=== PATIENT | male | born 1980 | race Caucasian/White ===

== ENCOUNTER 2024-09-07 06:48 | Emergency (ER) | payer SELFPAY ==
--- NOTE | ~2024-09-07 | XR_ITS ---
EXAMINATION: XR chest 2V DATE: 09/07/2024 07:55 INDICATION: Headache and dizziness TECHNIQUE: PA and lateral views of the chest were obtained. COMPARISON: None FINDINGS: Mild elevation the left hemidiaphragm. Lungs are clear with no focal airspace opacities, pulmonary ed tammy, pleural effusion or pneumothorax. The cardiomediastinal silhouette is normal. Mild anterior wedg ing of a few mid thoracic vertebral bodies. IMPRESSION: 1. Mild elevation of left hemidiaphragm. No other acute pulmonary disease. Reviewed, dictated and finalized at location A. ODONTIST VICE PRESIDENT
[2024-09-07 06:50] VITALS: BP 108/67; PULSE 86; RESP 17; TEMP 36.2; O2SAT 100
--- NOTE | 2024-09-07 06:57 | ECG_ITS ---
Test Date: 2024-09-07 07:05:15 Measurements Intervals Moon Rate: 85 P: 54 NH: 143 QRS: 28 QRSD: 106 T: 25 QT: 359 QTc: 429 Interpretive Statements SINUS RHYTHM No previous ECG available for comparison Electronically Signed On 09-12-2024 10:13:32 FORMS DESIGNER by Connor Echeverria M.D.
[2024-09-07 07:24] LABS: Basophils Percent Auto 0.1 % (0.2-1.2); Eosinophils Absolute Auto 0.1 K/mm3 (0-0.3); Eosinophils Percent Auto 0.7 % (0-4.4); Hematocrit 42.9 % (42.0-52.0); Hemoglobin 14.4 g/dL (14.0-18.0); Immature Granulocyte Absolute 0.03 K/mm3 (0.00-0.031); Immature Granulocyte Percent A 0.3 % (0-0.5); Lymphocytes Absolute Auto 2.58 K/mm3 (0.9-3.2); Lymphocytes Percent Auto 24.1 % (18.3-44.2); Mean Corpuscular HGB Conc 33.6 g/dl (32-36); Mean Corpuscular Hemoglobin 30.5 pg (26-34); Mean Corpuscular Volume 90.9 fl (80-100); Mean Platelet Volume 10.6 fl (7.4-10.4); Monocytes Absolute Auto 0.9 K/mm3 (0.1-0.6); Monocytes Percent Auto 8.3 % (2.6-8.5); Neutrophils Absolute Auto 7.1 K/mm3 (1.3-6.7); Neutrophils Percent Auto 66.5 % (45.5-73.1); Platelet Count Result 249 k/mm3 (150-375); Red Blood Count 4.72 M/mm3 (4.6-6.20); Red Cell Distribution Width 13.2 % (11.5-14.5); White Blood Count 10.7 K/mm3 (4.5-10.0)
[2024-09-07 07:34] LABS: Alanine Aminotransferase 20 U/L (6-50); Albumin Level 4.2 g/dL (3.5-5.1); Alkaline Phosphatase 74 U/L (38-126); Anion Gap 8 mmol/L (4-12); Aspartate Amino Transferase 25 U/L (17-59); Bilirubin,Total 0.6 mg/dL (0.2-1.3); Blood Urea Nitrogen 11 mg/dL (9-20); Calcium 8.9 mg/dL (8.4-10.2); Carbon Dioxide 26 mmol/L (22-30); Chloride 104 mmol/L (98-107); Estimated CRCL calculation 148 ml/min; Estimated Glomerular Filt Rate > 60; Glucose 117 mg/dL (65-110); Lipase 68 U/L (23-300); Potassium 3.4 mmol/L (3.4-5.0); Sodium 138 mmol/L (137-145)
[2024-09-07 07:38] LABS: INR 1.1; Partial Thromboplastin Time 24.2 Seconds (22.3-36.8); Prothrombin Time 14.6 Seconds (11.1-14.7)
[2024-09-07 07:46] LABS: Troponin I < 0.012 ng/mL (0.000-0.034)
[2024-09-07 08:52] VITALS: BP 132/106; PULSE 88; RESP 20; O2SAT 100
[2024-09-07 10:21] VITALS: BP 123/73; PULSE 99; RESP 16; TEMP 36.6; O2SAT 100
--- NOTE | 2024-09-07 10:24 | PC.NURSE ---
Patient brought into triage to repeat vitals. patient complaining of increasing pain. patient's vital signs obtained and all WNL.
--- NOTE | 2024-09-07 10:27 | PC.NURSE ---
Patient states he is going to go to the hospital where he had his surgery performed due to wait time at out facilty
--- OUTSIDE RECORDS SUMMARY | 2024-09-14 05:16 | XMS_ITS | Continuity of Care Document ---
Author Organization [facility] Address [address] [place] [address] Care Team Providers Care Opener Tender Name Role Phone Aaron Sheridan MD Unavailable Unavailable Allergies, Adverse Reactions, Alerts Substance Reaction Status Criticality No Known allergies Procedures Procedure Date OFFICE/OUTPATIENT VISIT, EST OFFICE/OUTPATIENT VISIT, EST OFFICE/OUTPATIENT VISIT, EST OFFICE/OUTPATIENT VISIT, EST URINALYSIS NONAUTO W/O SCOPE OFFICE/OUTPATIENT VISIT, EST MEASURE BLOOD OXYGEN LEVEL VISUAL ACUITY SCREEN URINALYSIS NONAUTO W/O SCOPE OFFICE/OUTPATIENT VISIT, [facility] [place] Advance Directives Directive Yes / No Effective Date File Name No Information Encounters Encounter Description Practice Location Reason(s) For Visit Diagnoses Date Provider Providers Copied on Encounter OFFICE/OUTPA TIENT VISIT, [facility], [address], [place], [id number] , [facility] needs referral to see ediscovery project manager (chief complaint) PVCs 3 Arvin Aaron. [address] [place] [address], [address], . tel:[phone] OFFICE/OUTPA TIENT VISIT, [facility], [address], [place], [id number] , [facility] referral for cardiology (chief complaint)ref erral for ent (chief complaint) Chronic sinusitisNasal polypEnvironmen win allergiesPVCs 3 No Information OFFICE/OUTPA TIENT VISIT, [facility], [address], [place], [place], [id number] , [facility] sinus pressure (chief complaint)rosanne al obstruction (chief complaint) Allergic rhinitisNasal obstruction 3 No Information OFFICE/OUTPA TIENT VISIT, [facility], [address], [place], [place], [id number] , [facility] [place] referral request (chief complaint) Encounter for vasectomyPVCs 2 No Information OFFICE/OUTPA TIENT VISIT, [facility], [address], [place], [place], [id number] , [facility] [place] UC left testicular pain (chief complaint) PVCs (premature ventricular contractions)BM I 30.0-30.9,adult Unspecified disorder of male genital organs 2 [facility]. [address], [place], [address], . tel:[phone] OFFICE/OUTPA TIENT VISIT, [facility], [address], [place], [place], [id number] , [facility] [place] physical exam (chief complaint)Pt recently had EKG done for Job Phx (abnormal) (chief complaint)Pt request Cardio clearance (chief complaint) PVCs (premature ventricular contractions)Ro utine general medical examination at a health care facilityPVCs (premature ventricular contractions)Ot her premature beats 1 No Information Family History Family Member Type Diagnosis Age At Onset Father Problem (finding) hypertension Payers Payer name Insurance type Covered democrat ID Authorlisaa timichael(s) [facility] [id number] Social History Type Description Quantity Date Captured Comments Alcohol Use Details beer 2 beers monthly Caffeine Use Details coffee Tobacco Use Status No Information Smoking Status Former smoker Sex Male Vital Signs Date / Time: Height Weight BMI Pulse Rate Blood Pressure Temperature Respiratory Rate Body Surface Area Head Circumference Head Circ. Percentile Wt./Damir. Percentile BMI percentile Pulse Ox Inhaled Ox 3:52 PM 72.00 in 234.00 lbs 31.7 3 kg/m eter (2) 75 /min 118/85 mm[Hg] 97.30 F 16 /min 96 % 3:54 PM 123/72 mm[Hg] Chief Complaint And Reason For Visit From encounter dated '02/01/2013 15:40'. needs referral to see ediscovery project manager (chief complaint) Reason For Referral Reason For Referral No Information Plan Of Treatment Date Type Action Status Referral Ordered: Allergy/Immun (related to Environmental allergies) ordered Referral Ordered: Cardiology (related to PVCs (premature ventricular contractions)) ordered Referral Ordered: Referral: Cardiology. Consult. ordered Referral Ordered: Referral: Allergy/Immun. ordered Referral Ordered: CT MAXILLOFACIAL W/O & W/DYE Bilateral sinuses ordered Referral Ordered: Otolaryngology (related to Nasal obstruction) ordered Referral Ordered: Referral: Otolaryngology. Consult. ordered Referral Ordered: Urology (related to Encounter for vasectomy) ordered Referral Ordered: Referral: Urology. Consult. ordered Future Order: Lab Order TSH, 3RD GENERATION ([id number]), Sent on: Sent Future Order: Lab Order LIPID PANEL ([id number] ), Sent on: Sent Future Order: Lab Order COMPREHE NSIVE METABOLIC$PANEL W/EGFR ([id number]), Sent on: Sent Future Order: Lab Order CBC (INC LUDES DIFF/PLT) ([id number]), Sent on: Sent History Of Present Illness Encounter Date Complaint History Of Prese nt Illness No Information Functional Status Date Functional Assessmen t No Information Instructions Date Instruction Additional Infor mation No Information Assessments Type Assessment Date No Information Patient Care Teams Name Effective Dates (start - stop) Status Members No Information
== END 2024-09-07 10:31 | disposition left against medical advice (07) ==
PROVIDERS: Emergency Provider Emergency Medicine
DX: R10.13 Epigastric pain (principal)
CPT/HCPCS: 36415; 71046; 80053; 83690; 84484; 85025; 85610; 85730; 93005; 99199